=== PATIENT | male | born 1970 | race Two or more races ===

== ENCOUNTER → 2016-04-01 | Day surgery (SDC) | payer OTHER ==
[2016-04-01] VITALS (11 sets, daily range): BP systolic 115–144; BP diastolic 61–96
[~2016-04-01] VITALS: Ht 177.8 cm; Wt 90.7 kg
[~2016-04-01] MED LIST: Alfentanil 2ml Inj ONE; Atropine Inj 1mg/10ml Syr IV PRN; Bupivacaine w/Epi 0.25% 30ml Vial INJ ONE; D5 1/2NS 1,000 ML IV SCH; Dexamethasone 4mg/ml vial ONE; DiphenhydrAMINE 50mg/ml Inj IVP PRN; EPINEPHrine 1mg/1ml Amp ONE; Hydromorphone 0.5mg/0.5ml inj IVP PRN; Kenalog-40 1ml Vial ONE; Ketorolac 30mg Inj IV PRN; Ketorolac 30mg Inj ONE; Ketorolac 60mg Inj IV PRN; LORazepam Inj 2mg/ml 1ml IV PRN; LR 1000ml 1,000 ML IVLG SCH; LR 1000ml ONE; Labetalol 5mg/ml 20ml vial IV PRN; Lidocaine 1% MPF 10mg/ml 5ml ONE; Meperidine 25mg/ml Inj IV PRN; Metoclopramide 10mg/2ml Inj IVP PRN; Midazolam 2mg/2ml Inj IVP PRN; Midazolam 2mg/2ml Inj ONE; Morphine Sulfate 2mg/ml Inj IVP PRN; Morphine Sulfate PF 0 ML ONE; NKM; NS Irrig 2000ml IRRIG ONE; NS Irrig 4000ml IRRIG ONE; Norco 5mg/325mg tab ORAL PRN; Norco 7.5mg/325mg tab ORAL PRN; Oxycodone/Acetaminophen 5-325 ORAL PRN; Propofol 10mg/ml 20ml IV ONE; Ropivacaine 5mg/ml Vial 20ml INJ ONE; advil PO; ceFAZolin 1gm/50ml Premix 50 ML IV ONE; celeBREX 200mg Cap **SURGERY PATIENTS ONLY ORAL ONE; fentaNYL 100 mcg/2 mL IV PRN; oxyCONTIN 20mg tab ORAL ONE
--- NOTE | 2016-04-01 11:45 | Anethesia Preoperative Eval ---
Anesthesia Pre-op PMH/ROS General Date of Evaluation: Apr 01, 2016 Time of Evaluation: 11:51 Anesthesiologist: Malachi ASA Score: ASA 2 Mallampati Score Class I : Soft palate, uvula, fauces, pillars visible Class II: Soft palate, uvula, fauces visible Class III: Soft palate, base of uvula visible Class IV: Only hard plate visible Mallampati Classification: Class II Surgeon: Lavelle Diagnosis: R Sholuder Pain Surgical Procedure: R Shoulder Arthroscopy Anesthesia History: none Family History: no anesthesia problems Allergies: Coded Allergies: No Known Allergies (Unverified , 03/30/16) Medications: see eMAR Past Medical History PSxH Narrative: S/P R Shoulder X2 Anesthesia Pre-op Phys. Exam Physician Exam Last Vital Signs Date Time Temp Pulse Resp B/P Pulse Ox O2 Delivery O2 Flow Rate FiO2 04/01/16 09:26 97.3 53 17 118/65 100 Room Air Constitutional: NAD Neurologic: CN 2-12 intact Cardiovascular: RRR Respiratory: CTA Gastrointestinal: S/NT/ND Airway Exam Mallampati Score: Class II MO: full ROM: limited Teeth: intact Anesthesia Pre-op A/P Risk Assessment & Plan Assessment: ASA 2 Plan: GA, BIS, R Supraclavicular Block Status Change Before Surgery: No Pre-Antibiotics Dru Grams Ancef IV Given Within 1 Hr of Incision: Yes Time Given: 12:06 Oj Olivo MD Apr 01, 2016 11:45
--- NOTE | 2016-04-01 11:47 | 48 Hour Post Anesthesia Eval ---
Post Anesthesia Evaluation Procedure: R Shoulder Arthroscopy Date of Evaluation: Apr 01, 2016 Time of Evaluation: 15:53 Blood Pressure Systolic: 127 0: 78 Pulse Rate: 67 Respiratory Rate: 18 Temperature (Fahrenheit): 98.2 O2 Sat by Pulse Oximetry: 100 Airway: patent Nausea: No Vomiting: No Pain Intensity: 1 Hydration Status: adequate Cardiopulmonary Status: Stable Mental Status/LOC: patient returned to baseline Follow-up Care/Observations: 0 Post-Anesthesia Complications: 0 Follow-up care needed: ready to discharge Oj Olivo MD Apr 01, 2016 11:47
--- NOTE | 2016-04-01 11:47 | Immediate Post-Op Evaluation ---
Immediate Post-Op Evalulation Immediate Post-Op Evalulation Procedure: R Shoulder Arthroscopy Date of Evaluation: Apr 01, 2016 Time of Evaluation: 13:49 IV Fluids: 800 LR Blood Products: 0 Estimated Blood Loss: 15 Urinary Output: 0 Blood Pressure Systolic: 135 Blood Pressure Diastolic: 86 Pulse Rate: 74 Respiratory Rate: 16 O2 Sat by Pulse Oximetry: 100 Temperature (Fahrenheit): 97.3 Pain Score (1-10): 1 Nausea: No Vomiting: No Complications 0 Patient Status: awake, reacts, patent, none Hydration Status: adequate Dru Grams Ancef IV Given Within 1 Hr of Incision: Yes Time Given: 12:06 Oj Olivo MD Apr 01, 2016 11:47
--- NOTE | 2016-04-01 13:17 | Pre-Procedure Note/Attestation ---
Pre-Procedure Note/Attestation Complete Prior to Procedure Planned Procedure: right Procedure Narrative: shoulder arthroscopy, rct repair, Indications for Procedure Pre-Operative Diagnosis: right shoulder rct Attestation I attest that I discussed the nature of the procedure; its benefits; risks and complications; and alternatives (and the risks and benefits of such alternatives ), prior to the procedure, with the patient (or the patient's legal patient representative). I attest that, if there was a reasonable possibility of needing a blood transfusion, the patient (or the patient's legal patient representative) was given the [facility] standardized written summary, pursuant to the [place] Blood Safety Act ([place] Health and Safety Code # 1645, as amended). I attest that I re-evaluated the patient just prior to the surgery and that there has been no change in the patient's H&P, except as documented below: [place] GILLIS Apr 01, 2016 13:17
--- NOTE | 2016-04-01 13:17 | Operative Note - PDOC ---
Operative Note Operative Note Pre-op Diagnosis: right shoulder rct Procedure: right shoulder rct repair Post-op Diagnosis: same as pre-op plus Operative Findings: consistent w/pre-op dx studies Anesthesia: general Specimen: none Complications: none Condition: stable Estimated Blood Loss: none Implant(s) used?: Yes GOOD GILLIS Apr 01, 2016 13:17
--- NOTE | 2016-04-02 02:58 | Operative Note - Dictated ---
DATE OF OPERATION: 04/01/2016 PREOPERATIVE DIAGNOSIS: Right shoulder rotator cuff tear. POSTOPERATIVE DIAGNOSIS: Right shoulder rotator cuff tear. PROCEDURES: 1. Right shoulder arthroscopy extensive intra-articular debridement. 2. Right shoulder arthroscopic rotator cuff repair. 3. Subacromial decompression bursectomy. SURGEON: Tacos Valderrama M.D. ANESTHESIA: Interscalene with general. INDICATION: The patient is a pleasant gentleman whose had progressive right shoulder pain. He had MRI, which showed a full-thickness rotator cuff tear. Given that he had continued pain, he would like to undergo a right shoulder revision of rotator cuff repair. Risks, limitations, expectations and were addressed. DESCRIPTION OF PROCEDURE: An informed consent was obtained. The patient was brought to the operative room and the patient was placed monitored anesthesia control. The patient was then carefully placed in beach-chair position. Right shoulder was prepped and draped in a sterile manner. Time-out was performed. The skin incisions were marked out. Inferolateral stab incision then made. Trocar introduced into the joint. There is no significant chondral damage. The anterior labrum appeared to be intact as well as the superior labrum. The biceps tendon has evidence of edema was located in bicipital groove. There is complete rupture of the rotator cuff. [place] was then placed in the lateral portal. This area was debrided. The camera was then repositioned in the subacromial space. Complete bursectomy was performed. The undersurface of the acromial was identified and seemed like he had adequate acromioplasty. Once the bursectomy and release of the cortical ligament was performed, attention was turned to the rotator cuff repair. The soft tissue laterally along the tuberosity that was debrided to bleeding surface. [place] was then placed into this area. Two mattress sutures were used to stitch down the rotator cuff. The second lateral row anchor was then placed to further recreate the footprint. Once that was done, the rotator cuff did move as a unit. Camera was removed. Portal sites closed with 3-0 Monocryl suture. Steri-Strips and a sterile dressing were applied. The patient was awoken and taken to recovery room with stable vital signs. ESTIMATED BLOOD LOSS: Minimal. COMPLICATIONS: None. SPECIMENS: None. IMPLANTS: Two Biomet rotator cuff repair anchors. Tacos Valderrama M.D. DR: LOVE JOB#: [id number] CC: BEE
== END | disposition home or self-care (01) ==
LOC: SUR 08:19
DX: M75.101 Unspecified rotator cuff tear or rupture of right shoulder, not specified as traumatic (principal); F17.210 Nicotine dependence, cigarettes, uncomplicated
CPT/HCPCS: 29826; 29827; C1713; J0171; J0690; J1100; J2250; J2405; J2704; J2795; J3490; J7120; 94003; 94150